=== PATIENT | female | born 1960 | race American Indian/Alaskan Native ===

== ENCOUNTER 2017-06-20 10:04 | Inpatient (IN) | payer MEDICARE, OTHER ==
--- NOTE | 2017-06-20 10:21 | Cat Scan Report ---
CT HEAD WITHOUT CONTRAST: HISTORY: CVA. Serial contiguous axial images were obtained through the cranium. Intravenous contrast material was not administered. The ventricles are normal in size and appearance. There is no mass effect or midline shift. No areas of abnormally increased or decreased attenuation are seen. Chronic encephalomalacia in the left posterior temporal lobe is unchanged since 07/16/15. No mass lesion is seen. No evidence for hemorrhage. The mastoid air cells and visualized portions of the sinuses are normal. IMPRESSION: No acute intracranial process identified. These findings were discussed with Dr. Shepherd in the emergency department at 1020 hrs.
[2017-06-20 10:23] LABS: Eosinophils % (Auto) 1.5 % (0.0-4.3); Hematocrit 43.1 % (30.3-42.9); Hemoglobin 13.9 gm/dl (10.1-14.3); Mean Corpuscular HGB Conc 32 % (30-34); Mean Corpuscular Hemoglobin 28 pg (28-32); Mean Corpuscular Volume 86 fl (79-97); Platelet Count 220 K/mm3 (140-440); Red Blood Count 5.03 M/mm3 (3.65-5.03); Red Cell Distribution Width 14.2 % (13.2-15.2); White Blood Count 8.6 K/mm3 (4.5-11.0)
--- NOTE | 2017-06-20 10:26 | Emergency Department Report ---
HPI - General Time Seen by Provider: 06/20/17 10:12 - HPI HPI: 57-year-old female presents to the emergency department by EMS with the concern for possible stroke or acute altered mental status. Around 9: 30 AM, the patient allegedly walked into her daughter's room and said something along the lines of "I don't want to live like this anymore" and then collapsed in front of her daughter. The patient has a history of CVA that left her with some trouble with speech however EMS says that she usually is able to express herself. There is some alleged residual weakness but it is unknown what is chronic for her. Currently the patient is mostly nonverbal and when she tries to talk she makes some gurgling sounds and some continued swelling motions. The patient does appear to have a seizure history she is on Keppra. She is on Plavix secondary to her history of CVA. The rest of her medications appear to show some history of hypertension, acid reflux. The patient is a poor historian secondary to her current condition. ED Past Medical Hx - Past Medical History Hx Hypertension: Yes Hx CVA: Yes (x7 per daugther. no deficits.) Hx Heart Attack/AMI: Yes (02/2014) Hx Congestive Heart Failure: No Hx Diabetes: No Hx Deep Vein Thrombosis: No Hx Liver Disease: No Hx Renal Disease: No Hx Arthritis: Yes Hx Headaches / Migraines: Yes Hx Seizures: Yes (LAST 03/2014) Hx Asthma: Yes Hx COPD: Yes Hx Dementia: No Additional medical history: hx of bells palsy, left side paralysis. - Surgical History Hx Coronary Stent: Yes (X2) Hx Pacemaker: No Hx Internal Defibrillator: No Hx Appendectomy: Yes - Social History Smoking Status: Current Every Day Smoker Substance Use Type: None - Medications Home Medications: Home Medications Medication Instructions Recorded Confirmed Last Taken Type ALBUTEROL Inhaler [ProAir HFA 1 inhalation INHALATION PRN PRN 11/15/14 07/16/15 03/22/15 07:00 History Inhaler] Amlodipine Besylate 10 mg PO DAILY 11/15/14 07/16/15 03/20/15 10:00 History Aspirin EC [Aspirin Enteric Coated 325 mg PO DAILY 11/15/14 07/16/15 03/15/15 09 :00 History TAB] Atorvastatin [Lipitor] 80 mg PO QHS 11/15/14 07/16/15 03/20/15 22:00 History Baclofen 10 mg PO BID 11/15/14 07/16/15 03/17/15 07:00 History Clopidogrel Bisulfate [Clopidogrel] 75 mg PO DAILY 11/15/14 07/16/15 03/15/15 09 :00 History Fluticasone/Salmeterol [Advair 1 inhalation INHALATION PRN PRN 11/15/1403/22/15 07:00 History Diskus 250-50 mcg] Metoprolol Xl [Metoprolol 50 mg PO DAILY 11/15/14 07/16/15 03/22/15 07:00 History SUCCINATE ER TAB] Nitroglycerin [Nitrostat] 0.4 mg SL PRN 11/15/14 07/16/15 03/18/15 10:00 History Ramipril Cap (Nf) [Altace Cap (Nf)] 5 mg PO DAILY 11/15/14 07/16/15 03/22/15 07: 00 History Tiotropium Mathias [Spiriva] 1 inhalation INHALATION PRN PRN 11/15/14 07/16/15 03/22/15 07:00 History Ranolazine ER [Ranexa ER] 1 tab PO BID 03/19/15 07/16/15 03/18/15 22:00 History ALPRAZolam [Xanax TAB] 0.5 mg PO BID PRN 07/16/15 07/16/15 Unknown History Cetirizine HCl [ZyrTEC] 10 mg PO DAILY 07/16/15 07/16/15 Unknown History Lacosamide [Vimpat] 150 mg PO BID #60 tablet 07/18/15 Unknown Rx ED Review of Systems ROS: Stated complaint: POSS STROKE Other details as noted in HPI Comment: Unobtainable due to pts medical conditions Physical Exam - Physical Exam Physical Exam: GENERAL: Patient is ill-appearing. HENT: Normocephalic. Atraumatic. Patient has moist mucous membranes. EYES: Unable to assess extraocular motions of the patient is not moving her eyes around or appear to be tracking. No obvious gaze preference. Pupils equal reactive to light bilaterally. NECK: Supple. Trachea is midline. CHEST/LUNGS: Clear to auscultation. There is no respiratory distress noted. HEART/CARDIOVASCULAR: Regular. There is no tachycardia. There is no gallop rub or murmur. ABDOMEN: Abdomen is soft, nontender. Patient has normal bowel sounds. There is no abdominal distention. SKIN: Skin is warm and dry. NEURO: The patient is awake but mostly nonverbal. When she attempts to speak it is garbled and incomprehensible. She does not appear to be following any commands. She does not withdraw from painful stimuli to the right sided extremities but does appear to move the left-sided extremities a small amount. MUSCULOSKELETAL: There is no tenderness or deformity. Radial pulses +2 over 4 bilaterally. Cap refill less than 2 seconds. There is no evidence of acute injury. ED Course - Consultations Consultation #1: I spoke with the telemedicine neurologist, Dr. Bashir, who saw the patient in the room via telemetry video. The patient is showing signs of improvement and is now more awake and alert. She has a history of seizures and there is some unconfirmed report of a seizure or seizure-like activity in route. With all of this, Dr. Bashir does not feel that the patient is an obvious stroke and certainly does not feel that the patient is a TPA candidate at this time. 06/20/17 10:56 ED Medical Decision Making - Lab Data Result diagrams: 06/20/17 10:07 06/20/17 10:07 - EKG Data -: EKG Interpreted by Me EKG shows normal: sinus rhythm, axis (borderline LAD), intervals, QRS complexes , ST-T waves (Nonspecific ST-T waves) Rate: normal - EKG Data When compared to previous EKG there are: previous EKG unavailable Interpretation: nonspecific ST-T wave [place] - Radiology Data Radiology results: report reviewed CT of the head without contrast shows no acute intracranial process identified. - Medical Decision Making 57-year-old female presents to the emergency department with some altered mental status versus stroke. The patient walked into the daughter's room at around 9:30 and then collapsed. While the patient had some mild possible seizure-like activity in route with some quivering of the lips and mouth, patient did not have any seizure-like activity when she collapsed witnessed by family. Patient presented with significant neurological deficits. By the time she was evaluated by the telemedicine neurologist she had shown great improvement. I reevaluated her as well and she does appear greatly improved and is currently verbal, cognizant and is seen moving all of her extremities. However family feels that she has not yet at her normal baseline mental status. CT of head did not show any acute cranial process. The rest the labs are unremarkable and do not show any etiology of her symptoms. Vital signs stable throughout her ED course. This may be a seizure with postictal state, this could be a TIA. Given the patient's significant deficits upon arrival and a lack of seizure-like activity during her collapse, I will seek admission for this patient. Telephone medicine neurology did not feel that the patient was a TPA candidate. All this has been discussed with the patient and her family and they understand and agreed with the plan. Given the patient's status upon presentation, a normal NIH stroke scale is hard to assess. She would be a 18 secondary to the inability to display movement of her extremities, aphasia, assumption of decreased sensation without withdrawing from painful stimuli, among other criteria. However patient was seen by neurology and agrees with the plan to avoid TPA administration as he feels it is possibly a sequela of a seizure. - Differential Diagnosis seizure, CVA, TIA, sepsis Critical Care Time: No Critical care attestation.: If time is entered above; I have spent that time in minutes in the direct care of this critically ill patient, excluding procedure time. ED Disposition Clinical Impression: Seizure disorder TIA (transient ischemic attack) Qualifiers: Transient cerebral ischemia type: unspecified Qualified Code(s): G45.9 - Transient cerebral ischemic attack, unspecified Altered mental status Qualifiers: Altered mental status type: transient alteration of awareness Qualified Code(s) : R40.4 - Transient alteration of awareness Disposition: DC-09 OP ADMIT IP TO THIS HOSP Is pt being admited?: Yes Condition: Fair Referrals: PRIMARY CARE, [Primary Care Provider] - 3-5 Days Time of Disposition: 12:10
[2017-06-20 10:27] LABS: INR 1.02 (0.87-1.13)
[2017-06-20 10:33] LABS: Anion Gap 18 mmol/L; BUN/Creatinine Ratio 12.22; Blood Urea Nitrogen 11 mg/dL (7-17); Calcium 8.9 mg/dL (8.4-10.2); Carbon Dioxide 23 mmol/L (22-30); Chloride 105.5 mmol/L (98-107); Glucose 92 mg/dL (65-100); Sodium 142 mmol/L (137-145)
[2017-06-20 10:37] LABS: Alanine Aminotransferase 26 units/L (7-56); Albumin 4.1 g/dL (3.9-5); Albumin/Globulin Ratio 1.3 %; Alkaline Phosphatase 91 units/L (35-129); Creatine Kinase 113 units/L (30-135); Total Protein 7.2 g/dL (6.3-8.2)
[2017-06-20 10:44] LABS: Bilirubin,Direct < 0.2 mg/dL (0-0.2); Bilirubin,Indirect 0.3 mg/dL
[2017-06-20] MEDS ORDERED: KEPPRA 1,000 MG/NS 0.75% 100ML 1,000 MG/100 ML BAG IV ONE (10:53)
--- NOTE | 2017-06-20 11:50 | History and Physical Report ---
History of Present Illness Chief complaint: I passed out History of present illness: 57 YO Female with HTN, Recurrent CVA(x7) with LHP, DE, Migraine BOLDEN, Seizure Disorder, COPD, CAD S/P Stent Placement, presents to ED for evaluation. Pt is unable to provide detailed history, but history taken from daughter. Pt was in her usual state of health until today. At 09:30 hrs pt walked into her daughter' s room and stated "I don't want to live like this anymore" and then collapsed in front of her daughter. EMS notified, and upon arrival patient was found to be confused with slurred speech, and word finding difficulty, as well as bilateral upper and lower extremity weakness. No reports of fever, chills, CP, Palpitaitons, NVD, Trauma, productive cough, recent ill contacts. Past History Past Medical History: acute DE, CAD, COPD, hypertension, seizures, stroke Past Surgical History: appendectomy, Other (Stent placement) Social history: single. denies: smoking, alcohol abuse, prescription drug abuse , IV drug use Family history: CAD, hypertension Medications and Allergies Allergies Allergy/AdvReac Type Severity Reaction Status Date / Time azithromycin Allergy Swelling Verified 11/15/14 07:14 hydrocodone Allergy ITCHING/SWE Verified 11/15/14 07:14 LLING Penicillins Allergy ITCHING/SWE Verified 11/15/14 07:14 LLING Sulfa (Sulfonamide Allergy Itching/SWE Verified 11/15/14 07:14 Antibiotics) LLING Home Medications Medication Instructions Recorded Confirmed Last Taken Type ALBUTEROL Inhaler [ProAir HFA 1 inhalation INHALATION PRN PRN 11/15/14 06/20/17 03/22/15 07:00 History Inhaler] Amlodipine Besylate 10 mg PO DAILY 11/15/14 06/20/17 03/20/15 10:00 History Atorvastatin [Lipitor] 80 mg PO QHS 11/15/14 06/20/17 03/20/15 22:00 History Baclofen 10 mg PO BID 11/15/14 06/20/17 03/17/15 07:00 History Clopidogrel Bisulfate [Clopidogrel] 75 mg PO DAILY 11/15/14 06/20/17 03/15/15 09 :00 History Metoprolol Xl [Metoprolol 50 mg PO DAILY 11/15/14 06/20/17 03/22/15 07:00 History SUCCINATE ER TAB] Tiotropium [place] [Spiriva] 1 inhalation INHALATION PRN PRN 11/15/14 06/20/17 03/22/15 07:00 History Ranolazine ER [Ranexa ER] 1 tab PO BID 03/19/15 06/20/17 06/20/17 History ALPRAZolam [Xanax TAB] 0.5 mg PO BID PRN 07/16/15 06/20/17 Unknown History Lacosamide [Vimpat] 150 mg PO BID #60 tablet 07/18/15 06/20/17 Unknown Rx Acetaminophen 325 mg PO Q4-6H PRN 06/20/17 06/20/17 06/20/17 History EPINEPHrine (NF) [Epipen (Nf)] 1 dose SUBCONJ ONCE 06/20/17 06/20/17 Unknown History Multiple Vitamins For Women 1 tab PO DAILY 06/20/17 06/20/17 Unknown History Nystatin [Nystop Powder] 1 applicatio TP BID 06/20/17 06/20/17 Unknown History Vitamin D3 1 tab PO DAILY 06/20/17 06/20/17 Unknown History levETIRAcetam [Keppra TAB] 750 mg PO BID 06/20/17 06/20/17 Unknown History Review of Systems ROS unobtainable: due to mental status Exam - Constitutional Vitals: Temp Pulse Resp BP Pulse Ox 98.5 F 82 18 144/96 100 06/20/17 10:18 06/20/17 10:39 06/20/17 10:52 06/20/17 10:18 06/20/17 10:52 General appearance: Present: mild distress - EENT Eyes: Present: PERRL ENT: hearing intact, clear oral mucosa - Neck Neck: Present: supple, normal ROM - Respiratory Respiratory effort: labored Respiratory: bilateral: diminished - Cardiovascular Heart Sounds: Present: S1 & S2. Absent: rub, click - Extremities Extremities: pulses symmetrical, No edema Peripheral Pulses: within normal limits - Abdominal General gastrointestinal: Present: soft, non-tender, non-distended, normal bowel sounds Female genitourinary: Present: normal - Integumentary Integumentary: Present: clear, dry, decreased turgor - Musculoskeletal Musculoskeletal: generalized weakness - Psychiatric Psychiatric: no intact judgment & insight, no memory intact - Neurologic Neurologic: no CNII-XII intact, focal deficits, no moves all extremities, no gait normal Results - Labs CBC & Chem 7: 06/20/17 10:07 06/20/17 10:07 Labs: Abnormal lab results 06/20/17 Range/Units 10:07 Hct 43.1 H (30.3-42.9) % Lymph % (Auto) 48.1 H (13.4-35.0) % [place] % (Auto) 12.5 H (0.0-7.3) % [place] # 1.1 H (0.0-0.8) K/mm3 Seg Neutrophils % 36.9 L (40.0-70.0) % Assessment and Plan - Patient Problems (1) CVA (cerebral vascular accident) Current Visit: Yes Status: Acute Qualifiers: CVA mechanism: C Precerebral and cerebral artery: P Laterality of affected vessel: L Plan to address problem: Stroke protocol: CT head, Antiplatelet therpay, Carotid doppler, Echo, risk factor reduction, Pt unable to undergo MRI/MRA as per family, Neuro checks, EEG. (2) Unconscious state Current Visit: Yes Status: Acute Plan to address problem: Secondary to recurrent CVA. CT head, EEG, supportive care, (3) Quadriparesis (muscle weakness) Current Visit: Yes Status: Acute Plan to address problem: Secondary to recurrent stroke. PT/OT consulted, Case management consulted for SNF placement (4) Seizure disorder Current Visit: Yes Status: Acute Plan to address problem: EEG, continue current therapy. (5) CAD (coronary artery disease) Current Visit: Yes Status: Acute Qualifiers: Coronary Disease-Associated Artery/Lesion type: C Pala vs. transplanted heart: N Associated angina: A Plan to address problem: Continue current therapy, continue medical management. (6) DVT prophylaxis Current Visit: Yes Status: Acute
[2017-06-20] MEDS ORDERED: PHENERGAN PR PRN (11:54)
[2017-06-20] MEDS ORDERED: ZOFRAN IV PRN (11:54)
[2017-06-20] MEDS ORDERED: REGLAN PO PRN (11:54)
[2017-06-20] MEDS ORDERED: TYLENOL PO PRN (11:54)
[2017-06-20] MEDS ORDERED: DULCOLAX PR PRN (11:54)
[2017-06-20] MEDS ORDERED: MILK OF MAGNESIA PO PRN (11:54)
[2017-06-20] MEDS ORDERED: SODIUM CHLORIDE FLUSH SYRINGE 10 ML IV PRN (11:54)
[2017-06-20] MEDS ORDERED: FLUTICASONE INHALATION PRN (11:59)
[2017-06-20] MEDS ORDERED: XANAX PO PRN (11:59)
[2017-06-20] MEDS ORDERED: SALMETEROL INHALATION PRN (11:59)
[2017-06-20] MEDS ORDERED: NITROSTAT SL SCH (12:00)
[2017-06-20] MEDS: BROVANA NEBU IH SCH ×2 (16:30→19:30)
[2017-06-20] MEDS: PULMICORT IH SCH ×2 (16:30→19:30)
[2017-06-20] MEDS: RANEXA ER PO SCH (21:57)
[2017-06-20] MEDS: VIMPAT PO SCH (21:57)
[2017-06-20] MEDS: LIORESAL PO SCH (21:57)
[2017-06-20] MEDS ORDERED: NON-FORMULARY (Atorvastatin [Lipitor] 80 MG) PO SCH (22:00)
[2017-06-20] MEDS ORDERED: ZOCOR PO SCH (22:00)
[2017-06-20] MEDS ORDERED: LACOSAMIDE 150 MG PO SCH (22:00)
--- NOTE | 2017-06-21 03:40 | Admit Criteria Form ---
Admission Criteria Documentation: TRANSIENT ISCHEMIC ATTACK (TIA) Clinical Indications for Admission to Inpatient Care (Place 'X' for any and all applicable criteria): Admission is indicated for ANY ONE of the following(1)(2)(3)(4)(5): [ ]I. Immediate inpatient procedure is needed (eg, endarterectomy). [ ]II. Inpatient admission required rather than observation care (Also use Transient Ischemic Attack (TIA): Observation Care Criteria as appropriate) because of ANY ONE of the following: [ ]a) Focal neurologic signs or symptoms persist or recurring [ ]b) Cardiac arrhythmias of immediate concern [ ]c) Clinically significant cardiac disorder identified that requires inpatient care (eg, severe valvular disease, atrial myxoma, cardiomyopathy) [ ]d) Hypertension requiring inpatient treatment [ ]e) Parenteral anticoagulation required (eg, alternative forms of anticoagulation not appropriate or not feasible) as indicated by ALL of the following(13): [ ]i) Temporary subtherapeutic anticoagulation unacceptable because of high risk of short-term venous or arterial thromboembolism due to ANY ONE of the following(14)(15)(16): [ ]1) Atrial fibrillation suspected as etiology of TIA(17)(18)(19)(20)(21) [ ]2) Venous thromboembolism within past 12 months [ ]3) Underlying malignancy [ ]4) Patient with mechanical cardiac valve(22)( 23) [ ]5) Underlying hypercoagulable state (eg, protein C or protein S deficiency antithrombin deficiency, antiphospholipid antibodies) [ ]6) Patient at temporary high risk of thromboembolism (eg, status post orthopedic surgery) [ ]ii) Contraindications to outpatient use of "bridging" agent or alternative oral anticoagulant[B] as indicated by ALL of the following: [ ]1) Contraindication to outpatient use of low- molecular-weight heparin as "bridging" agent as indicated by ANY ONE of the following(15): [ ]A. Documented current or history of heparin-induced thrombocytopenia(24) [ ]B. Severe thrombocytopenia (eg, platelet count less than 50,000/mm3 (48h341/L) [ ]C. Documented allergy to heparin, low- molecular-weight heparin, or pork products [ ]D. Renal failure (creatinine clearance less than 30 mL/min/1.73m2 (0.50mL/sec/1.73m2) or on dialysis) [ ]E. Inability to manage self-injection ( eg, by patient, caregiver, or visiting nurse) [ ]2) Contraindication to outpatient use of fondaparinux as "bridging" agent as indicated by ANY ONE of the following(25)(26 )(27)(28): [ ]A. Severe thrombocytopenia (eg, platelet count less than 50,000/mm3 (50 x109/L)) [ ]B.Hypersensitivity to fondaparinux, related drugs, or product components [ ]C.Renal failure (creatinine clearance less than 30 mL/min/1.73m2 (0.50mL/sec/1.73m2) or on dialysis) [ ]D.Inability to manage self-injection ( eg, by patient, caregiver, or visiting nurse [ ]3. Oral direct thrombin inhibitor (eg, dabigatran) or oral coagulation factor Xa inhibitor (eg, rivaroxaban, apixaban) not appropriate as oral anticoagulation (eg, indication not appropriate) or contraindicated (eg, hypersensitivity, creatinine clearance less than 15 mL/min/1.73m2 ( 0.25 mL/sec/1.73m2) or on dialysis). [ ]f) Continuous IV infusion of anticoagulant, platelet inhibitor, vasoactive or antiarrhythmia(18)(19) [ ]g) Other condition, treatment, or monitoring requiring inpatient admission [ ]III. Contraindications and/or Inappropriate clinical situations for Observational Care in patients with Transient Ischemic Attack (TIA), when ANY ONE of the following is required: [ ]a) Patient with persistent or severe neurological deficit 24 [ ]b) Patient with acute CVA or other identified pathology should be admitted to inpatient for further care 25 [X ]IV. General contraindications and/or Inappropriate clinical situations for Observational Care in patients with Transient Ischemic Attack (TIA), when ANY ONE of the following is required: [ ]a) Prediction of prolongation of LOS based on ANY ONE of the following may be considered as a contraindication for observational care 2, 3, 4, 5, 6, 7, 8, 9, 10, 11 [ ]i) Age > 65 yrs. [ ]ii) Patient arriving by ambulance [ ]iii) Patient with high acuity [ ]iv) Patient requiring vital sign monitoring [ ]v) Patient on IV medication [ ]b) Systolic blood pressures 180mmHg 3,12 [ X]c) Patient with altered mental status including delirium and other alteration of consciousness, (3) [ ]d) Patient whose discharge disposition will be to a long-term home or rehabilitation home should not be managed in Emergency Department Observation Unit. CMS rule requires 3 days hospital stay before such placement.3,13 [ ]e) Patient with failure to thrive due to broad array of etiologies 3,16,17 [ ]f) Inability to ambulate 3,14 Extended stay beyond goal length of stay may be needed for(4)(30)(32): [ ]a) Parenteral anticoagulation required [ ]b) Dangerous arrhythmia [ ]c) Cardiac valvular disorder, atrial myxoma, cardiomyopathy [ ]d) Uncontrolled severe hypertension [ ]e) Severe carotid stenosis [ ]f) Active comorbidities (eg, heart failure) [ ]g) Extracranial vertebrobasilar disease(29) [ ]h) Clinical evolution of TIA into cerebrovascular accident (stroke) The original [employer] content created by [employer] has been revised. The portions of thecontent which have been revised are identified through the use of italic text or in bold, and [facility] has neither reviewed nor approved the modified material. All other unmodified content is copyright [facility]. Please see references footnoted in the original [facility] edition 2016 Admission Criteria Met: Yes
[2017-06-21] MEDS: BROVANA NEBU IH SCH ×2 (07:57→19:41)
[2017-06-21] MEDS: PULMICORT IH SCH ×2 (08:05→19:41)
[2017-06-21] MEDS: ECOTRIN PO SCH (09:45)
[2017-06-21] MEDS: LIORESAL PO SCH ×2 (09:45→21:15)
[2017-06-21] MEDS: RANEXA ER PO SCH ×2 (09:45→21:15)
[2017-06-21] MEDS: PLAVIX PO SCH (09:45)
[2017-06-21] MEDS: VIMPAT PO SCH ×2 (09:45→21:16)
[2017-06-21] MEDS: CLARITIN PO SCH (09:46)
--- NOTE | 2017-06-21 09:55 | Progress Note ---
Assessment and Plan Assessment and plan: Patient is a 57-year-old -Guyanese female with HTN, Recurrent CVA(x7) with LHP, [place], Migraine BOLDEN, Seizure Disorder, COPD, CAD S/P Stent Placement who brought to the hospital on the late evening of 06/20/2017 with seizure and subsequent altered mental status and right hemiparalysis. Questionable CVA (cerebral vascular accident) Per her family patient sometimes after the seizures she does have weakness on either side of her body and she will gets back to normal within few days Stroke protocol initiated CT of the head showed an old area of encephalomalacia in the left posterior temporal lobe due to an old infarct. no acute stroke was noted on the CT scan Continue on Asprin, plavix and statin's Bilateral Carotid doppler shows <50% stenosis Echocardiogram on 06/20/17 with ef of 55-60% Patient unable to undergo MRI/MRA as per family Physical /occupational therapy on board Speech evaluation therapy Frequent Neuro checks Neurology consult Acute Metabolic encephalopathy Most likely due to recurrent CVA and seizure Normal CT of the head EEG pending Supportive care. Status epilepticus Continue on IV Vimpat and increased on IV Keppra per Neurology EEG pending Neurology consult Supportive care Quadriparesis (muscle weakness) Secondary to recurrent stroke Physical therapy/occupational on board Case management consulted for SNF placement Hyperlipidemia Continue on home antilipid agents Lipitor and simvastatin Hypertension Continue on home antihypertensive medication DVT prophylaxis On SCD and Plavix History Interval history: Patient is very lethargic, opens eyes to verbal stimuli, Her speech is garbled and incomprehensible. Hospitalist Physical - Constitutional Vitals: Temp Pulse Resp BP Pulse Ox 98.3 F 69 20 110/75 97 06/21/17 04:20 06/21/17 09:46 06/21/17 08:34 06/21/17 09:46 06/21/17 08:34 General appearance: Present: mild distress, other (alert and oriented to self.) - EENT Eyes: Present: PERRL - Neck Neck: Present: supple - Respiratory Respiratory effort: normal Respiratory: bilateral: CTA - Cardiovascular Heart rate: 69 Rhythm: regular Heart Sounds: Present: S1 & S2 - Extremities Extremities: no ischemia Peripheral Pulses: within normal limits - Abdominal General gastrointestinal: soft, non-tender - Integumentary Integumentary: Present: clear, warm, dry - Psychiatric Psychiatric: intact judgment & insight (no intact judgment) - Neurologic Neurologic: moves all extremities - Allied Health Allied health notes reviewed: nursing Results - Labs CBC & Chem 7: 06/20/17 10:07 06/20/17 10:07 Labs: Laboratory Last Values WBC 8.6 K/mm3 (4.5-11.0) 06/20/17 10:07 RBC 5.03 M/mm3 (3.65-5.03) 06/20/17 10:07 Hgb 13.9 gm/dl (10.1-14.3) 06/20/17 10:07 Hct 43.1 % (30.3-42.9) H 06/20/17 10:07 MCV 86 fl (79-97) 06/20/17 10:07 MCH 28 pg (28-32) 06/20/17 10:07 MCHC 32 % (30-34) 06/20/17 10:07 RDW 14.2 % (13.2-15.2) 06/20/17 10:07 Plt Count 220 K/mm3 (140-440) 06/20/17 10:07 Lymph % (Auto) 48.1 % (13.4-35.0) H 06/20/17 10:07 [place] % (Auto) 12.5 % (0.0-7.3) H 06/20/17 10:07 Eos % (Auto) 1.5 % (0.0-4.3) 06/20/17 10:07 Baso % (Auto) 1.0 % (0.0-1.8) 06/20/17 10:07 Lymph # 4.1 K/mm3 (1.2-5.4) 06/20/17 10:07 [place] # 1.1 K/mm3 (0.0-0.8) H 06/20/17 10:07 Eos # 0.1 K/mm3 (0.0-0.4) 06/20/17 10:07 Baso # 0.1 K/mm3 (0.0-0.1) 06/20/17 10:07 Seg Neutrophils % 36.9 % (40.0-70.0) L 06/20/17 10:07 Seg Neutrophils # 3.2 K/mm3 (1.8-7.7) 06/20/17 10:07 PT 13.9 Sec. (12.2-14.9) 06/20/17 10:07 INR 1.02 (0.87-1.13) 06/20/17 10:07 APTT 32.0 Sec. (24.2-36.6) 06/20/17 10:07 Thrombin Time 16.1 Sec. (15.1-19.6) 06/20/17 10:07 Sodium 142 mmol/L (137-145) 06/20/17 10:07 Potassium 4.0 mmol/L (3.6-5.0) 06/20/17 10:07 Chloride 105.5 mmol/L (98-107) 06/20/17 10:07 Carbon Dioxide 23 mmol/L (22-30) 06/20/17 10:07 Anion Gap 18 mmol/L 06/20/17 10:07 BUN 11 mg/dL (7-17) 06/20/17 10:07 Creatinine 0.9 mg/dL (0.7-1.2) 06/20/17 10:07 Estimated GFR > 60 ml/min 06/20/17 10:07 BUN/Creatinine Ratio 12.22 % 06/20/17 10:07 Glucose 92 mg/dL (65-100) 06/20/17 10:07 POC Glucose 98 (70-105) 06/20/17 10:14 Calcium 8.9 mg/dL (8.4-10.2) 06/20/17 10:07 Total Bilirubin 0.50 mg/dL (0.1-1.2) 06/20/17 10:07 Direct Bilirubin < 0.2 mg/dL (0-0.2) 06/20/17 10:07 Indirect Bilirubin 0.3 mg/dL 06/20/17 10:07 AST 27 units/L (5-40) 06/20/17 10:07 ALT 26 units/L (7-56) 06/20/17 10:07 Alkaline Phosphatase 91 units/L (35-129) 06/20/17 10:07 Total Creatine Kinase 113 units/L (30-135) 06/20/17 10:07 Troponin T < 0.010 ng/mL (0.00-0.029) 06/20/17 10:07 Total Protein 7.2 g/dL (6.3-8.2) 06/20/17 10:07 Albumin 4.1 g/dL (3.9-5) 06/20/17 10:07 Albumin/Globulin Ratio 1.3 % 06/20/17 10:07 Triglycerides 122 mg/dL (2-149) 06/21/17 04:16 Cholesterol 121 mg/dL (50-199) 06/21/17 04:16 LDL Cholesterol Direct 49 mg/dL (50-130) L 06/21/17 04:16 HDL Cholesterol 48 mg/dL (40-59) 06/21/17 04:16 Cholesterol/HDL Ratio 2.52 % 06/21/17 04:16 TSH 1.280 mlU/mL (0.270-4.200) 06/20/17 10:07
[2017-06-21] MEDS ORDERED: NON-FORMULARY (Cetirizine Hcl [Zyrtec] 10 MG) PO SCH (10:00)
[2017-06-21] MEDS ORDERED: ZESTRIL PO SCH (10:00)
[2017-06-21] MEDS ORDERED: TOPROL XL PO SCH (10:00)
[2017-06-21] MEDS ORDERED: RAMIPRIL 5 MG PO SCH (10:00)
[2017-06-21] MEDS ORDERED: NORVASC PO SCH (10:00)
[2017-06-21] MEDS ORDERED: PROAIR IH PRN (10:17)
[2017-06-21] MEDS ORDERED: ACETAMINOPHEN 325 MG PO PRN (10:17)
[2017-06-21] MEDS ORDERED: SPIRIVA IH PRN (10:17)
[2017-06-21] MEDS ORDERED: PROVENTIL IH PRN (10:48)
[2017-06-21] MEDS ORDERED: TYLENOL PO PRN (11:00)
--- NOTE | 2017-06-21 13:34 | Consultation ---
History of Present Illness Consult date: 06/21/17 Requesting physician: NILDA PRECIADO Reason for Consult: Possible stroke, Seizures History of present illness: Neurology consultation report: 06/21/2017 Ms. Abner agosto is a 57-year-old -Luxembourger female patient brought to the hospital on the late evening of 06/20/2017 with a history of acute onset of passing out spell and subsequent altered mental status and right hemiparalysis. She had an emergency CT scan of the brain last night and showed old area of encephalomalacia in the left posterior temporal lobe due to an old infarct. Patient's niece was present at the bedside who could not provide details and patient also appeared to be less communicative than usual and unable to provide history. I contacted her daughter on the phone and obtained the history and current dashboard records also reviewed. Mrs. Abner agosto was apparently fine until last evening when she apparently all of a sudden said "I don't want to live like this", soon after that she slumped to the floor and was essentially unresponsive as per the daughter. No tonic-clonic movements of the extremities noted and no foaming in the mouth, tongue bite or incontinence of urine. Following this she opened her eyes but was sort of staring and did not follow commands. In the ER she was noted to be right hemiparetic and perhaps aphasic. She had a tele neurology consultation last night and I have reviewed that report. Their impression was that she probably had a seizure with postictal right hemiparalysis, otherwise acute stroke appeared to be less likely as per tele neurology consultation report. According to her daughter on the phone this patient has a known history of seizure disorder for many years and sees a neurologist on outpatient basis. She has been on Keppra and Vimpat for seizure control. Daughter states she takes Keppra 750 mg twice daily and Vimpat dose not quite clear from the history. Frequency of seizures also unclear but daughter stated she has seizures a few times a month or once every several months. Apparently she has been taking medications regularly. She had several strokes in the past and the last one was sometime in 2014 when she had received TPA as per the records. She has hypertension, coronary artery disease with stents, COPD and hyperlipidemia. She has no diabetes. She smokes half to 1 pack a day otherwise no alcohol. No recent falls or trauma. Daughter states that normally she is fully ambulatory without assistance and even her speech has been normal prior to this time. Daughter did say that sometimes after the seizures she does have" weakness on either side of the body" and generally she gets back to normal within a day or 2. No recent febrile illness. Daughter said she had a stroke on the right side of the face several years ago and was unable to close the right eye lid for which she had a small piece of a metal placement in the right eye lid and since then she has been unable to have MRIs. Family history: Nothing significant from neurologic standpoint She is allergic to azithromycin, hydrocodone, penicillins, and sulfa Gen. exam: Blood pressure 136/90, no cranial or carotid bruit. Pulses 78 and regular, no neck stiffness. No edema of the feet and dorsalis pedis palpable. No skin rash. Central nervous system exam: Higher cortical functions: Patient easily arousable, looks around and speaks single words, appears to be somewhat dysarthric and perhaps could be mildly moderately aphasic, unable to sustain conversation, mostly speaks single words and rarely spoke a short sentence. She did say that she is in the hospital and recognized her niece at the bedside. Cranial nerves: Optic fundi could not be examined, pupils about 3 mm sluggishly reactive. She seems to have full degree of eye movements except left lateral gaze which appears to be mildly restricted. No definite visual field deficit could be assessed as patient is not quite fully cooperative for this. Does have mild right facial weakness otherwise tongue and palate normal. She does have a small metal piece embedded in the right eye lid. Please see discussion about this above. Motor system: She seems to have good strength in all extremities grade 5 over 5 and no arm drift noted on today's exam. 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 Mild tremors noted on [id number] test. [id number] tests are normal. Gait not tested Sensory exam: Difficult to perform in this patient with speech problem. Reflexes: Deep tendon reflexes appeared to be bilaterally 2-3+ and almost symmetrical and both plantar reflexes are downgoing Impression: #1. Likely a single breakthrough seizure with postictal right hemiparalysis and aphasia, improving. This patient has a known history of a chronic secondarily generalized seizure disorder for which she has been on Keppra and Vimpat, history indicated that she had apparently not missed a dose of her medications. #2. Apparent history of several strokes in the past, CT brain done on 2016 showed old ADL encephalomalacia in the left posterior temporal lobe related to an old infarct otherwise no acute stroke was noted on the CT scan. Seizures likely related to this old stroke. #3. So far no clinical or CT scan evidence of acute stroke. She is unable to have MRI due to an metal in the right eye lid. Recommendation: Increase Keppra dose to 1000 mg twice a day and continue Vimpat 150 mg twice a day as she has been taking. Continue aspirin and Plavix and statins as she has been taking. EEG is ordered. This patient probably can be discharged home in the next 24-48 IF no other new concerns or any recurrence of Seizures. She will require follow up with her outpatient neurologist in about 3 weeks after discharge. Discussed with patient's daughter on the phone. I will see her again only if any new concerns or requested. Thank you very much for this consultation. Kevin caldwell M.D./ Neurology 06/21/17 Past History Past Medical History: acute IA, CAD, COPD, hypertension, seizures, stroke Past Surgical History: appendectomy, Other (Stent placement) Social history: single. denies: smoking, alcohol abuse, prescription drug abuse , IV drug use Family history: CAD, hypertension Medications and Allergies Allergies Allergy/AdvReac Type Severity Reaction Status Date / Time azithromycin Allergy Swelling Verified 11/15/14 07:14 hydrocodone Allergy ITCHING/SWE Verified 11/15/14 07:14 LLING Penicillins Allergy ITCHING/SWE Verified 11/15/14 07:14 LLING Sulfa (Sulfonamide Allergy Itching/SWE Verified 11/15/14 07:14 Antibiotics) LLING Home Medications Medication Instructions Recorded Confirmed Last Taken Type ALBUTEROL Inhaler [ProAir HFA 1 inhalation INHALATION PRN PRN 11/15/14 06/20/17 03/22/15 07:00 History Inhaler] Amlodipine Besylate 10 mg PO DAILY 11/15/14 06/20/17 03/20/15 10:00 History Atorvastatin [Lipitor] 80 mg PO QHS 11/15/14 06/20/17 03/20/15 22:00 History Baclofen 10 mg PO BID 11/15/14 06/20/17 03/17/15 07:00 History Clopidogrel Bisulfate [Clopidogrel] 75 mg PO DAILY 11/15/14 06/20/17 03/15/15 09 :00 History Metoprolol Xl [Metoprolol 50 mg PO DAILY 11/15/14 06/20/17 03/22/15 07:00 History SUCCINATE ER TAB] Tiotropium [place] [Spiriva] 1 inhalation INHALATION PRN PRN 11/15/14 06/20/17 03/22/15 07:00 History Ranolazine ER [Ranexa ER] 1 tab PO BID 03/19/15 06/20/17 06/20/17 History ALPRAZolam [Xanax TAB] 0.5 mg PO BID PRN 07/16/15 06/20/17 Unknown History Lacosamide [Vimpat] 150 mg PO BID #60 tablet 07/18/15 06/20/17 Unknown Rx Acetaminophen 325 mg PO Q4-6H PRN 06/20/17 06/20/17 06/20/17 History EPINEPHrine (NF) [Epipen (Nf)] 1 dose SUBCONJ ONCE 06/20/17 06/20/17 Unknown History Multiple Vitamins For Women 1 tab PO DAILY 06/20/17 06/20/17 Unknown History Nystatin [Nystop Powder] 1 applicatio TP BID 06/20/17 06/20/17 Unknown History Vitamin D3 1 tab PO DAILY 06/20/17 06/20/17 Unknown History levETIRAcetam [Keppra TAB] 750 mg PO BID 06/20/17 06/20/17 Unknown History Active Meds: Active Medications Acetaminophen (Tylenol) 650 mg PO Q4H PRN PRN Reason: Pain Albuterol (Proventil) 2.5 mg IH Q4HRT PRN PRN Reason: Shortness Of Breath Alprazolam (Xanax) 0.5 mg PO BID PRN PRN Reason: Anxiety Arformoterol Tartrate (Brovana Nebu) 15 mcg IH Q12HRT [facility] Last Admin: 06/21/17 07:57 Dose: 15 mcg Aspirin (Ecotrin) 325 mg PO DAILY [facility] Last Admin: 06/21/17 09:45 Dose: 325 mg Atorvastatin Calcium (Lipitor) 80 mg PO QHS [facility] Last Admin: 06/20/17 21:57 Dose: 80 mg Baclofen (Lioresal) 10 mg PO BID [facility] Last Admin: 06/21/17 09:45 Dose: 10 mg Bisacodyl (Dulcolax) 10 mg MI QDAY PRN PRN Reason: Constipation Budesonide (Pulmicort) 0.5 mg IH Q12HRT [facility] Last Admin: 06/21/17 08:05 Dose: 0.5 mg Clopidogrel Bisulfate (Plavix) 75 mg PO DAILY [facility] Last Admin: 06/21/17 09:45 Dose: 75 mg Lacosamide (Vimpat) 150 mg PO Q12HR [facility] Last Admin: 06/21/17 09:45 Dose: 150 mg Levetiracetam (Keppra) 1,000 mg PO BID [facility] Lisinopril (Zestril) 10 mg PO QDAY [facility] Last Admin: 06/21/17 09:46 Dose: 10 mg Loratadine (Claritin) 10 mg PO DAILY [facility] Last Admin: 06/21/17 09:46 Dose: 10 mg Magnesium Hydroxide (Milk Of Magnesia) 30 ml PO Q4H PRN PRN Reason: Constipation Metoclopramide HCl (Reglan) 10 mg PO Q6H PRN PRN Reason: Nausea And Vomiting Miscellaneous Medication (Vitamin D3) 1 tab PO DAILY [facility] Multivitamins (Theragran Tab) 1 each PO DAILY [facility] Nitroglycerin (Nitrostat) 0.4 mg SL PRN [facility] Nystatin (Nystop) 1 applic TP BID [facility] Ondansetron HCl (Zofran) 4 mg IV Q8H PRN PRN Reason: N/V unrelieved by Reglan Promethazine HCl (Phenergan) 25 mg [place] Q6H PRN PRN Reason: Nausea And Vomiting Ranolazine (Ranexa Er) 500 mg PO BID [facility] Last Admin: 06/21/17 09:45 Dose: 500 mg Simvastatin (Zocor) 20 mg PO QHS [facility] Last Admin: 06/20/17 21:57 Dose: 20 mg Sodium Chloride (Sodium Chloride Flush Syringe 10 Ml) 10 ml IV PRN PRN PRN Reason: LINE FLUSH Tiotropium [place] (Spiriva) 1 puff IH PRN PRN PRN Reason: Shortness Of Breath Physical Examination - Vital Signs Vital Signs: Vital Signs Temp Pulse Resp BP Pulse Ox 98.5 F 85 21 144/96 100 06/20/17 10:18 06/20/17 10:18 06/20/17 10:18 06/20/17 10:18 06/20/17 10:18 Results - Laboratory Findings CBC and BMP: 06/20/17 10:07 06/20/17 10:07 Abnormal Lab Findings: Abnormal Labs 06/21/17 04:16 LDL Cholesterol Direct 49 L
[2017-06-21] MEDS: THERAGRAN Tab PO SCH (13:55)
[2017-06-21] MEDS: KEPPRA PO SCH ×2 (13:56→21:16)
[2017-06-21] MEDS: NYSTOP TP SCH (14:17)
[2017-06-21] MEDS ORDERED: NON-FORMULARY (Levetiracetam [Keppra Tab] 750 MG) PO SCH (22:00)
[2017-06-21] MEDS ORDERED: KEPPRA PO SCH (22:00)
[2017-06-22] MEDS: NYSTOP TP SCH ×2 (05:29→09:57)
[2017-06-22 08:19] VITALS: BP 95/62
[2017-06-22] MEDS: BROVANA NEBU IH SCH (08:50)
[2017-06-22] MEDS: PULMICORT IH SCH (08:50)
[2017-06-22] MEDS: KEPPRA PO SCH (09:54)
[2017-06-22] MEDS: RANEXA ER PO SCH (09:55)
[2017-06-22] MEDS: LIORESAL PO SCH (09:55)
[2017-06-22] MEDS: ECOTRIN PO SCH (09:55)
[2017-06-22] MEDS: PLAVIX PO SCH (09:56)
[2017-06-22] MEDS: VIMPAT PO SCH (09:56)
[2017-06-22] MEDS: THERAGRAN Tab PO SCH (09:57)
[2017-06-22] MEDS: CLARITIN PO SCH (09:57)
[2017-06-22] MEDS ORDERED: MULTIPLE VITAMINS FOR WOMEN PO SCH (10:00)
[2017-06-22] MEDS ORDERED: VITAMIN D3 PO SCH (10:00)
--- NOTE | 2017-06-22 12:31 | Discharge Summary ---
Providers - Providers Date of Admission: 06/20/17 11:54 Date of discharge: 06/22/17 Attending physician: STACY RENTERIA MD 06/20/17 13:36 Speech Therapy Evaluation and Treat [CONS] Routine Reason For Exam: weakness s/p cva 06/20/17 16:49 Consult to Case Management [CONS] Routine Services Needed at Discharge: Other Notified:: director case management Additional Physician Instructions: Please send out information for SNF placement at discharge as per family request 06/21/17 10:06 Consult to Physician [CONS] Routine Consulting Provider: JOSH GONZALEZ Reason For Exam: CVA and seizure Place consult to:: yes Notified:: YES Phone number called:: yes Primary care physician: [employer]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 Patient was diagnosed with Acute metabolic encephalopathy, Questionable CVA (cerebral vascular accident), status epilepticus , Quadriparesis, Hyperlipidemia and Hypertension. Acute Stroke rule out CT scan of the brain showed old area of encephalomalacia in the left posterior temporal lobe due to an old infarct. Bilateral Carotid doppler shows <50% stenosis. Echocardiogram on 06/20/17 with ef of 55-60%. Patient altered mental status was, most likely she had a seizure with postictal right hemiparalysis. She was treated with anticonvulsants, antilipid agents, ASA and antihypertensive medications. Patient Co-managed with neurology. Patient is clinically improved and discharge to SNF. Patient was advised to follow with her outpatient neurologist in about 3 weeks after discharge. Discharged Diagnosed Acute metabolic encephalopathy Status epilepticus Questionable CVA (cerebral vascular accident) Quadriparesis (muscle weakness) Hyperlipidemia Hypertension Disposition: DC/[place]-03 SNF [facility] C[facility] Time spent for discharge: 33 minutes Core Measure Documentation - Palliative Care Palliative Care/ Comfort Measures: Not Applicable - Core Measures Any of the following diagnoses?: none Exam - Constitutional Vitals: Temp Pulse Resp BP Pulse Ox 97.9 F 74 16 95/62 99 06/22/17 08:18 06/22/17 08:52 06/22/17 08:52 06/22/17 08:18 06/22/17 08:45 General appearance: Present: no acute distress - EENT Eyes: Present: PERRL ENT: hearing intact - Neck Neck: Present: supple - Respiratory Respiratory effort: normal Respiratory: bilateral: CTA - Cardiovascular Heart rate: 74 Rhythm: regular Heart Sounds: Present: S1 & S2 - Extremities Extremities: no ischemia Peripheral Pulses: within normal limits - Abdominal General gastrointestinal: Present: soft, non-tender Female genitourinary: Present: deferred - Rectal Rectal Exam: deferred - Integumentary Integumentary: Present: clear, warm, dry - Musculoskeletal Musculoskeletal: strength equal bilaterally - Psychiatric Psychiatric: appropriate mood/affect - Neurologic Neurologic: CNII-XII intact - Allied Health Allied health notes reviewed: nursing Plan Activity: fall precautions Weight Bearing Status: Weight Bear as Tolerated Diet: low fat, low cholesterol, low salt Follow up with: PRIMARY CARE,MD [Primary Care Provider] - 3-5 Days Prescriptions: ALPRAZolam [Xanax TAB] 0.5 mg PO BID PRN #14 tablet PRN Reason: Anxiety Aspirin EC [Aspirin Enteric Coated TAB] 81 mg PO QDAY #30 tablet. Lacosamide [Vimpat] 200 mg PO BID #60 tablet levETIRAcetam [Keppra TAB] 1,000 mg PO BID #60 tablet Lisinopril [Zestril TAB] 10 mg PO QDAY #30 tablet Nitroglycerin [Nitrostat] 0.4 mg SL PRN #30 tablet
== END 2017-06-22 13:55 | DRG 64 ==
LOC: ED 10:04 → 4A 11:54
PROVIDERS: ADMIT Internal Medicine; ATTEND Internal Medicine
DX: I63.9 Cerebral infarction, unspecified (principal); R40.20 Unspecified coma; G93.41 Metabolic encephalopathy; I10 Essential (primary) hypertension; G40.909 Epilepsy, unspecified, not intractable, without status epilepticus; Z88.0 Allergy status to penicillin; Z88.2 Allergy status to sulfonamides; Z88.8 Allergy status to other drugs, medicaments and biological substances; I25.2 Old myocardial infarction; J44.9 Chronic obstructive pulmonary disease, unspecified; G51.0 Bell's palsy; F17.200 Nicotine dependence, unspecified, uncomplicated; Z79.82 Long term (current) use of aspirin; I25.10 Atherosclerotic heart disease of native coronary artery without angina pectoris; Z82.49 Family history of ischemic heart disease and other diseases of the circulatory system; M62.81 Muscle weakness (generalized)
CPT/HCPCS: 36415; 70450; 80048; 80061; 80074; 82550; 82962; 84443; 84484; 85025; 85379; 85610; 85670; 85730; 93005; 93010; 93306; 93880; 94640; 95819; 96365; 99406; A9270-GY; G8978-GP; G8979-GP; G8987-GO; G8988-GO; G8996-GN; G8997-GN; J1953